=== PATIENT | female | born 1995 | race Caucasian/White ===

== ENCOUNTER 2019-09-15 05:08 | Emergency (ER) | payer OTHER, SELFPAY ==
[2019-09-15 05:18] VITALS: BP 127/87; PULSE 121; RESP 18; TEMP 37.2; O2SAT 99
--- NOTE | 2019-09-15 05:27 | ED.ABDPAIN ---
HPI - Abdominal Pain General Chief Complaint: Abdominal Pain <Artie Hou DO - Last Filed: 09/15/19 05:29> Stated Complaint: n/v <Artie Hou DO - Last Filed: 09/15/19 05:29> Time Seen by Provider: 09/15/19 05:32 <Artie Hou DO - Last Filed: 09/15/19 05:29> Source: RN notes reviewed <Artie Hou DO - Last Filed: 09/15/19 05:29> History of Present Illness HPI narrative: Patient presents emergency department from home for nausea vomiting diarrhea. Patient states symptoms began at 7 PM last night. Patient states she is had numerous episodes of nausea vomiting as well as diarrhea. States she has associated abdominal pain located left upper quadrant described as burning. Denies any fevers or chills, chest pain shortness of breath or any other symptoms. Denies any chance of . Patient states she did take Zofran at approximately 130 for nausea at home that she has from history of migraines with minimal relief <Artie Hou DO - Last Filed: 09/15/19 05:29> Related Data Allergies/Adverse Reactions: Allergies Allergy/AdvReac Type Severity Reaction Status Date / Time acetaminophen Allergy Mild Verified 01/03/18 12:08 metoclopramide Allergy Unknown Unknown Verified 01/03/18 12:08 morphine Allergy Unknown Verified 01/03/18 12:08 CERTAIN COUGH MEDICATION Allergy Mild Uncoded 02/28/08 17:58 ETOH Allergy Unknown Uncoded 09/23/15 13:48 <Artie Hou DO - Last Filed: 09/15/19 05:29> Review of Systems Review of Systems: Narrative: Gen.: Denies fevers or chills ENT: Denies congestion Respiratory: Denies shortness of breath or cough CV: Denies chest pain or palpitations GI: See HPI denies burning, urgency, frequency or hematuria Musculoskeletal: Denies back pain or muscle pain Neuro: Denies numbness, tingling, weakness or focal weakness Skin: Denies rash Except as documented, all other systems reviewed and negative <DO Cuong Castañeda Last Filed: 09/15/19 05:29> PMFSH Past Medical History Medical History: Medical History (Updated 09/15/19 @ 05:28 by Artie Hou DO) Migraine headache <DO Cuong Castañeda Last Filed: 09/15/19 05:29> Social History Social History: Social History (Updated 09/15/19 @ 05:28 by Artie Hou DO) Smoking status: Never smoker Gender identity (if verbalized by the patient): Female <DO Cuong Castañeda Last Filed: 09/15/19 05:29> Exam Narrative: Exam Narrative: APPEARANCE: No acute distress, nontoxic, resting in bed HEENT: Normocephalic, atraumatic, OMM RESPIRATORY: No respiratory distress, clear to auscultation bilaterally with no rhonchi wheezing or rales CARDIOVASCULAR: RRR s murmur ABDOMINAL: Soft, nondistended, tender palpation left upper quadrant, no tenderness right upper quadrant, right lower quadrant left lower quadrant, no rebound or guarding MUSCULOSKELETAl: Moves all extremities. No clubbing, cyanosis or edema. NEURO: Awake and alert. Following commands, speech normal, no focal deficits SKIN:: Warm, dry. Normal Color PSYCHIATRIC: Normal affect/mood <DO Cuong Castañeda Last Filed: 09/15/19 05:29> Course Vital Signs Vital signs: Vital Signs Temperature 99.0 F 09/15/19 05:18 Pulse Rate 121 H 09/15/19 05:18 Respiratory Rate 18 09/15/19 05:18 Blood Pressure 127/87 09/15/19 05:18 Pulse Oximetry 99 09/15/19 05:18 Temperature 99.0 F 09/15/19 05:18 Pulse Rate 121 H 09/15/19 05:18 Respiratory Rate 18 09/15/19 05:18 Blood Pressure 127/87 09/15/19 05:18 Pulse Oximetry 99 09/15/19 05:18 <DO Cuong Castañeda Last Filed: 09/15/19 05:29> Vital Signs Temperature 99.0 F 09/15/19 05:18 Pulse Rate 121 H 09/15/19 05:18 Respiratory Rate 18 09/15/19 05:18 Blood Pressure 127/87 09/15/19 05:18 Pulse Oximetry 99 09/15/19 05:18 Temperature 99.0 F 09/15/19 05:18 Pulse Rate 121 H 09/15/19 05:18
[2019-09-15 05:50] LABS: Basophils Percent Auto 0.2 % (0.2-1.2); Eosinophils Absolute Auto 0.1 K/mm3 (0-0.3); Eosinophils Percent Auto 1.9 % (0-4.4); Hematocrit 45.2 % (37.0-47.0); Hemoglobin 14.5 g/dL (12.0-15.0); Immature Granulocyte Absolute 0.01 K/mm3 (0.00-0.031); Immature Granulocyte Percent A 0.2 % (0-0.5); Lymphocytes Absolute Auto 0.74 K/mm3 (0.9-3.2); Lymphocytes Percent Auto 15.4 % (18.3-44.2); Mean Corpuscular HGB Conc 32.1 g/dl (32-36); Mean Corpuscular Hemoglobin 27.6 pg (26-34); Mean Corpuscular Volume 86.1 fl (80-100); Mean Platelet Volume 10.9 fl (7.4-10.4); Monocytes Absolute Auto 0.2 K/mm3 (0.1-0.6); Monocytes Percent Auto 3.5 % (2.6-8.5); Neutrophils Absolute Auto 3.8 K/mm3 (1.3-6.7); Neutrophils Percent Auto 78.8 % (45.5-73.1); Platelet Count Result 228 k/mm3 (150-375); Red Blood Count 5.25 M/mm3 (4.2-5.4); White Blood Count 4.8 K/mm3 (4.5-10.0)
[2019-09-15] MEDS: FAMOTIDINE 20 MG/2 ML VIAL IV PUSH (05:50)
[2019-09-15] MEDS: LACTATED RINGERS 1,000 ML 999 ML IV CONT (05:50)
[2019-09-15] MEDS: ONDANSETRON INJ 4 MG/2 ML VIAL IV PUSH (05:51)
[2019-09-15 06:01] LABS: Alanine Aminotransferase 34 U/L (4-35); Albumin Level 4.3 g/dL (3.5-5.1); Alkaline Phosphatase 80 U/L (38-126); Aspartate Amino Transferase 29 U/L (14-36); Bilirubin,Total 0.6 mg/dL (0.2-1.3); Blood Urea Nitrogen 11 mg/dL (7-17); Calcium 8.8 mg/dL (8.4-10.2); Carbon Dioxide 21 mmol/L (22-30); Chloride 103 mmol/L (98-107); Estimated Glomerular Filt Rate > 60; Glucose 105 mg/dL (65-105); Potassium 4.1 mmol/L (3.4-5.0); Sodium 142 mmol/L (137-145)
--- NOTE | 2019-09-15 06:02 | PC.NURSE ---
Called lab to add on Lipase
[2019-09-15 06:19] LABS: Lipase 74 U/L (23-300)
[2019-09-15 06:40] LABS: Add Urine Microscopic? YES; Appearance Urine Clear (Clear); Bacteria Urine Trace /hpf; Bilirubin Urine Negative (Negative); Blood Urine 1+ (Negative); Color Urine Yellow (Yellow); Glucose Urine UA Negative (Negative); Ketones Urine 1+ mg/dL (Negative); Leukocyte Esterase Ur Trace LEU/UL (Negative); Mucus Urine Heavy /lpf; Nitrate Urine Negative (Negative); Protein Urine Negative (Negative); Specific Grav Ur 1.026 (1.001-1.035); Squamous Epithelial Cell Urine Moderate /hpf (Few); Urobilinogen Urine Negative mg/dL (<2.0); WBC Urine 0-3 /hpf
[2019-09-15 06:54] VITALS: BP 122/72; PULSE 91; RESP 18; O2SAT 100
[2019-09-15] MEDS: BELLADONNA ALK/PHENOB ELIX 10 ML, MAG HYDROX/ALUMINUM HYD/SIMETH 30 ML, LIDOCAINE HCL 2... PO (07:16)
[2019-09-15] MEDS: PROMETHAZINE HCL 25 MG/ML AMPUL 12.5 MG IV PUSH (07:16)
[2019-09-15 08:13] VITALS: BP 124/81; PULSE 98; RESP 14; O2SAT 99
== END 2019-09-15 08:13 | disposition home or self-care (01) ==
PROVIDERS: Emergency Medicine; Emergency Provider General Practice
DX: K52.9 Noninfective gastroenteritis and colitis, unspecified (principal)
CPT/HCPCS: 36415; 80053; 81001; 81025; 83690; 85025; 96361; 96374; 96375; 99284; A9270; J2405; J2550; J7120

== ENCOUNTER 2019-10-07 13:24 | Emergency (ER) | payer OTHER, SELFPAY ==
[2019-10-07 13:33] VITALS: BP 136/91; PULSE 83; RESP 18; TEMP 37.3; O2SAT 99
--- NOTE | 2019-10-07 13:55 | ED.URI ---
HPI - URI/Sore Throat General Chief Complaint: Upper Respiratory Infection Stated Complaint: cough/fever/running nose Time Seen by Provider: 10/07/19 13:55 Source: patient and RN notes reviewed Mode of arrival: ambulatory Limitations: no limitations History of Present Illness HPI Narrative: Pt is a 24 y/o female who is a non-smoker/non-drinker that presents to the with c/o a cough that started 3 weeks ago and worsened 3 days ago. She reports associated rhinorrhea, fever of 99, congestion, and ear ache. She states that in the beginning she started off with a sore throat, voice hoarseness, and vomiting. Pt notes that her cough is not getting better and she noticed orange colored mucous. She does not have a H/o asthma and does not use inhalers or nebulizers. 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 She states that she has not been able to take a day off. Pt denies being exposed to TB and she denies any recent foreign or domestic travel. She denies wheezing. MD elicited complaint: cough Onset (ago): week(s) (3) Consistency: progressively worsening Description of mucous: other (orange) Relieving factors: nothing Associated symptoms: fever, voice changes, rhinorrhea, nasal congestion, sore throat, vomiting and ear pain Related Data Home Medications Medication Instructions Recorded Confirmed amitriptyline 10/07/19 ergocalciferol (vitamin D2) 10/07/19 [Vitamin D2] norethindrone ac-eth estradiol tablet 10/07/19 [Microgestin 08/12 (21)] propranolol PO 10/07/19 rizatriptan mg 10/07/19 topiramate 10/07/19 Allergies Allergy/AdvReac Type Severity Reaction Status Date / Time acetaminophen Allergy Mild Verified 10/07/19 13:47 metoclopramide Allergy Unknown Unknown Verified 10/07/19 13:47 morphine Allergy Unknown Verified 10/07/19 13:47 CERTAIN COUGH MEDICATION Allergy Mild Uncoded 10/07/19 13:47 ETOH Allergy Unknown Uncoded 10/07/19 13:47 Review of Systems Review of Systems: Narrative: General/Constitutional: No weight loss. Reports fever of 99. Eyes: N0: Redness,discharge Ears/Nose/Throat: No: Epistaxis,ear discharge. Reports rhinorrhea, congestion, ear ache, sore throat, voice hoarseness. Respiratory: Denies: Hemoptysis, wheezing. Reports cough with orange mucous Gastrointestinal: No Bleeding-rectal. Reports vomiting. Skin: No Lumps, eruption Neurologic: No Focal Weakness,Sz Hematologic: Denies: Petechiae/Purpura Psychiatric: No: Suicida ideationl All Other Systems: Reviewed and Negative PMFSH Past Medical History Medical History (Updated 10/07/19 @ 14:17 by Germán Hart MD) History of ITP Migraine headache Surgical History Surgical History (Updated 10/07/19 @ 14:10 by Sandor Harris) H/O knee surgery Social History Social History (Updated 10/07/19 @ 14:10 by Sandor Harris) Smoking status: Never smoker Alcohol intake: never Gender identity (if verbalized by the patient): Female Comments At time of signature, agree with nursing past medical, surgical, social and family history. There is no relevant family history pertinent to the presenting complaint Exam Narrative: Exam Narrative: General Obese/ nourished Well appearing, EYE: PERRLA, Conjunctiva clear Ears: Auditory canal normal, TM normal Nose: Rhinorrhea, Mucousal erythema Mouth/Throat: MM moist, Uvula midline, Pharyngeal erythema Neck: Supple, No adenopathy Respiratory: No respiratory distress, Breath sounds equal, Clear to auscultation Cardiovascular: RRR, No JVD Musculoskeletal: Non tender, Normal strength Skin: Warm, Dry Neurological: A&O x3, CN II-XII intact Psychiatric: Normal mood, Normal affect Course Vital Signs Vital signs: Vital Signs Temperature 99.2 F 10/07/19 13:33 Pulse Rate 83 10/07/19 13:33 Respiratory Rate 18 10/07/19 13:33 Blood Pressure 136/91 H 10/07/19 13:33 Pulse Oximetry 99 10/07/19 13:33 Temperature 99.2 F 10/07/19 13:33 Pulse Rate
== END 2019-10-07 14:20 | disposition home or self-care (01) ==
PROVIDERS: Emergency Provider Emergency Medicine
DX: J01.90 Acute sinusitis, unspecified (principal)
CPT/HCPCS: 87804; 99213; G0463

== ENCOUNTER 2021-04-01 14:22 | Emergency (ER) | payer BC, SELFPAY ==
[2021-04-01 14:33] VITALS: BP 117/79; PULSE 87; RESP 16; TEMP 36.7; O2SAT 99
--- NOTE | 2021-04-01 15:46 | ED.URI ---
HPI - URI/Sore Throat General Chief Complaint: Upper Respiratory Infection Stated Complaint: Sore Throat Source: patient and RN notes reviewed Limitations: no limitations History of Present Illness HPI Narrative: The unvaccinated patient, recently at home hospitalized for s/p cholecystectomy , presents with sore throat. Patient states she has a shorter 1 to 2-day history of sore throat that she woke with, and could see visible exudate. No fever, hoarseness, trismus, S OB, loss of taste/smell, CP, rash, vomiting/diarrhea. Symptoms are mild, worse swallowing or eating Related Data Home Medications Medication Instructions Recorded Confirmed amitriptyline 25 mg PO DIRECTED 10/07/19 04/01/21 ergocalciferol (vitamin D2) 1,250 mcg PO DIRECTED 10/07/19 04/01/21 [Vitamin D2] norethindrone ac-eth estradiol 1 tablet PO DAILY 10/07/19 04/01/21 [Microgestin 08/12 ()] propranolol 120 mg PO DAILY 10/07/19 04/01/21 topiramate 25 mg PO DAILY 10/07/19 04/01/21 duloxetine 30 mg PO DAILY 04/01/21 04/01/21 Allergies Allergy/AdvReac Type Severity Reaction Status Date / Time acetaminophen Allergy Mild Other Verified 04/01/21 14:44 metoclopramide Allergy Unknown Difficulty Verified 04/01/21 15:12 Breathing morphine Allergy Unknown Hives Verified 04/01/21 15:12 CERTAIN COUGH MEDICATION Allergy Mild Other Uncoded 04/01/21 14:44 ETOH Allergy Unknown Other Uncoded 04/01/21 14:44 Review of Systems Review of Systems: General/Constitutional: No weight loss,fever Eyes: N0: Redness,discharge Ears/Nose/Throat: No: Epistaxis,ear discharge Respiratory: Denies: Hemoptysis Gastrointestinal: No Vomiting, Bleeding-rectal Skin: No Lumps, eruption Neurologic: No Focal Weakness,Sz Hematologic: Denies: Petechiae/Purpura Psychiatric: No: Suicida ideationl All Other Systems: Reviewed and Negative [facility] Past Medical History Medical History (Updated 04/01/21 @ 15:48 by Germán Hart MD) History of ITP Migraine headache Surgical History Surgical History (Updated 10/07/19 @ 14:10 by Sandor Harris) H/O knee surgery Social History Social History (Updated 10/07/19 @ 14:10 by Sandor Harris) Smoking status: Never smoker Alcohol intake: never Gender identity (if verbalized by the patient): Female Comments At time of signature, agree with nursing past medical, surgical, social and family history. There is no relevant family history pertinent to the presenting complaint Exam Narrative: General Appearance: Overweight/well nourished EYE: PERRLA, Conjunctiva clear Ears: Auditory canal normal, TM normal Nose: Rhinorrhea, Mucousal erythema Mouth/Throat: MM moist, Uvula midline, Pharyngeal erythema with exudate R>>L Neck: Supple, No adenopathy Respiratory: No respiratory distress, Breath sounds equal, Clear to auscultation Cardiovascular: RRR, No JVD Musculoskeletal: Non tender, Normal strength Skin: Warm, Dry Neurological: A&O x3, CN II-XII intact Psychiatric: Normal mood, Normal affect Course Vital Signs Vital signs: Vital Signs Temperature 98.1 F 04/01/21 14:33 Pulse Rate 87 04/01/21 14:33 Respiratory Rate 16 04/01/21 14:33 Blood Pressure 117/79 04/01/21 14:33 Pulse Oximetry 99 04/01/21 14:33 Temperature 98.1 F 04/01/21 14:33 Pulse Rate 87 04/01/21 14:33 Respiratory Rate 16 04/01/21 14:33 Blood Pressure 117/79 04/01/21 14:33 Pulse Oximetry 99 04/01/21 14:33 MDM - URI/Sore Throat Lab Data Labs: Strep Screen Positive Group A Strep *(Reference Range: Negative)* Discharge Plan Discharge Clinical Impression: Strep pharyngitis Patient Disposition: Home, Self-Care Condition: Stable Instructions: Antibiotic Form, Strep Throat (ED) Prescriptions: New amoxicillin 875 mg tablet 875 mg PO Q12H Qty: 20 RF: 0 lidocaine HCl [Lidocaine Viscous] 2 % solution 5 ml MUCOUS MEM QI
== END 2021-04-01 15:52 | disposition home or self-care (01) ==
PROVIDERS: Emergency Provider Emergency Medicine
DX: J02.0 Streptococcal pharyngitis (principal); D69.3 Immune thrombocytopenic purpura
CPT/HCPCS: 87880; 99213; G0463

== ENCOUNTER 2021-07-16 11:23 | Emergency (ER) | payer OTHER, BC, SELFPAY | END 2021-07-16 15:01 | disposition left against medical advice (07) | DX: Z53.21 Procedure and treatment not carried out due to patient leaving prior to being seen by health care provider (principal) | CPT/HCPCS: 99199 ==